=== PATIENT | female | born 1995 | race Caucasian/White ===

== ENCOUNTER 2019-07-09 18:53 | Emergency (ER) | payer OTHER ==
[2019-07-09] MEDS ORDERED: ACETAMINOPHEN 500 MG TABLET (FP) PO ONE (18:56)
[2019-07-09 18:58] VITALS: BP 132/71; PULSE 130; TEMP 100.7; BMI 22.1
--- NOTE | 2019-07-09 18:59 | PDOC ---
Rapid Medical Evaluation Chief Complaint: Cold Symptoms Time Seen by Provider: 07/09/19 18:56 Medical Evaluation: Vital Signs Temp Pulse Resp BP Pulse Ox 100.7 F H 130 H 19 132/71 97 07/09/19 18:56 07/09/19 18:56 07/09/19 18:56 07/09/19 18:56 07/09/19 18:56 07/09/19 18:58 Pt c/o: uri s/s since monday afternoon, took cough medication Pt on brief exam: febrile, tachy pt ordered for: tylenol and flu swab pt to proceed to the ED Discharge Disposition - Diagnosis Fever - Referrals - Patient Instructions - Post Discharge Activity
[2019-07-09] MEDS ORDERED: ACETAMINOPHEN 325 MG TABLET (FP) ONE (19:18)
--- NOTE | 2019-07-09 19:20 | PDOC ---
History of Present Illness - General Chief Complaint: Cold Symptoms Stated Complaint: COLD SYMPTOMS Time Seen by Provider: 07/09/19 18:56 Exam Limitations: No Limitations - History of Present Illness Is this a multiple visit Asthma Patient?: No Past History - Past Medical History Allergies/Adverse Reactions: Allergies Allergy/AdvReac Type Severity Reaction Status Date / Time No Known Allergies Allergy Verified 07/09/19 18:58 Home Medications: Ambulatory Orders Oseltamivir Phosphate [Tamiflu -] 75 mg PO BID #10 capsule 07/09/19 COPD: No - Surgical History Cardiac Surgery: Yes (age of 3 hole repair) - Psycho Social/Smoking Cessation Hx Smoking History: Never smoked Information on smoking cessation initiated: No Hx Alcohol Use: No Drug/Substance Use Hx: No Review of Systems - Review of Systems Able to Perform ROS?: Yes Is the patient limited Greek proficient: Yes Constitutional: Yes: Symptoms Reported, See HPI, Chills, Fever, Loss of Appetite , Malaise HEENTM: Yes: Symptoms Reported, See HPI, Ear Pain, Nose Congestion, Throat Pain , Difficulty Swallowing Respiratory: Yes: Symptoms reported, See HPI, Cough ABD/GI: Yes: See HPI. No: Symptoms Reported Musculoskeletal: Yes: Symptoms Reported, Muscle Pain, Muscle Weakness Integumentary: Yes: See HPI. No: Symptoms Reported Neurological: Yes: Symptoms reported, See HPI, Headache All Other Systems: Reviewed and Negative *Physical Exam - Vital Signs Last Vital Signs Temp Pulse Resp BP Pulse Ox 100.7 F H 130 H 19 132/71 97 07/09/19 18:56 07/09/19 18:56 07/09/19 18:56 07/09/19 18:56 07/09/19 18:56 - Physical Exam General Appearance: Yes: Nourished, Appropriately Dressed, Apparent Distress, Mild Distress HEENT: positive: SHRUTI (Glassy), TMs Normal (Congested but landmarks easily visualized), Pharyngeal Erythema (With white postnasal drainage, swollen uvula) , Nasal Congestion, Rhinorrhea (Clear) Neck: positive: Supple, Lymphadenopathy (R), Lymphadenopathy (L). negative: Tender Respiratory/Chest: positive: Lungs Clear (Coarse but clear), Normal Breath Sounds Gastrointestinal/Abdominal: positive: Normal Bowel Sounds, Soft. 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 Discharge - Discharge Information Problems reviewed: Yes Clinical Impression/Diagnosis: Influenzal acute upper respiratory infection Condition: Stable Disposition: HOME - Admission No - Follow up/Referral Referrals: Paul Quintana MD [Primary Care Provider] - - Patient Discharge Instructions Patient Printed Discharge Instructions: DI for Influenza -- Adult Additional Instructions: Rest, no strenuous activity until symptoms have resolved Lots of fluids: Soups, teas, water Salt water gargles, steamy showers, old-fashioned treatments [id number] medications: NyQuil/DayQuil, Tylenol or Motrin for fever and symptomatic relief Quarantine self as this viral illness is very contagious. Expect symptoms to last between 5 and 10 days Tamiflu 1-75 mg tablet every 12 hours for 5 days - Post Discharge Activity Work/Back to School Note: Back to Work, Back to School
== END 2019-07-09 19:25 | disposition home or self-care (01) ==
LOC: JERFT 18:53
DX: J11.1 Influenza due to unidentified influenza virus with other respiratory manifestations (principal)
CPT/HCPCS: 87804; 99283-25

== ENCOUNTER 2023-04-04 08:20 | Inpatient (IN) | payer OTHER ==
[2023-04-04] MEDS ORDERED: ACETAMINOPHEN 1000 MG/100 ML BAG IVPB ONE (09:09)
[2023-04-04] MEDS ORDERED: ACETAMINOPHEN INJECTION 100 ML IVPB ONE (09:20)
[2023-04-04 10:01] LABS: BASO % 0.1 % (0-2.0); EOS % 0.1 % (0-4.5); HEMATOCRIT 31.6 % (32.4-45.2); HEMOGLOBIN 9.6 GM/dL (10.7-15.3); LYMPH % 8.3 % (8-40); MCH 22.5 pg (25.7-33.7); MCHC 30.5 g/dl (32.0-36.0); MEAN CELL VOLUME 73.9 fl (80-96); MEAN PLT VOLUME 7.8 fl (7.5-11.1); NEUT % 84.5 % (42.8-82.8); PLATELET COUNT 421 10^3/uL (134-434); RBC 4.28 M/mm3 (3.60-5.2); RDW 15.1 % (11.6-15.6); WHITE BLOOD COUNT 10.9 K/mm3 (4.0-10.0)
[2023-04-04 10:08] LABS: INR 1.25 (0.83-1.09); PROTHROMBIN TIME (PATIENT) 14.5 SEC (9.7-13.0)
[2023-04-04 10:11] LABS: ACTIVATED PTT 29.8 SECONDS (25.2-36.5)
[2023-04-04] MEDS ORDERED: ONDANSETRON 4 MG/2 ML VIAL IVPUSH ONE (10:40)
[2023-04-04] MEDS ORDERED: ONDANSETRON 4 MG/2 ML VIAL ONE (10:45)
[2023-04-04 10:46] LABS: POTASSIUM 3.8 mmol/L (3.5-5.1)
[2023-04-04 10:47] LABS: CALCIUM 8.4 mg/dL (8.5-10.1)
[2023-04-04 10:48] LABS: ALBUMIN 3.2 g/dl (3.4-5.0); BLOOD UREA NITROGEN 13.8 mg/dL (7-18)
[2023-04-04 10:52] LABS: BILIRUBIN,TOTAL 0.4 mg/dL (0.2-1); CREATININE 0.7 mg/dL (0.55-1.3); TOT PROT 7.5 g/dl (6.4-8.2)
[2023-04-04 12:33] LABS: PH,URINE 5.5 (5.0-8.0); URINE APPEARANCE CLEAR; URINE BILIRUBIN NEGATIVE (NEGATIVE); URINE COLOR DK YELLOW; URINE GLUCOSE (UA) NEGATIVE (NEGATIVE); URINE KETONE 2+ (NEGATIVE); URINE LEUK ESTERASE NEGATIVE (NEGATIVE); URINE NITRITE NEGATIVE (NEGATIVE); URINE PROTEIN TRACE (NEGATIVE)
[2023-04-04] MEDS ORDERED: PIPERACILLIN/TAZOB 4.5 GM 4.5 GM in DEXTROSE 5%-WATER 100 ML IVPB ONE (14:28)
[2023-04-04] MEDS ORDERED: PIPERACILLIN/TAZOB 4.5 GM 4.5 GM/100 ML BAG IVPB ONE (14:37)
[2023-04-04] MEDS: LACTATED RINGERS SOLUTION 1,000 ML/1,000 ML INFUS.BAG IV SCH (15:00)
[2023-04-04 19:30] VITALS: BMI 23.4
[2023-04-04] MEDS ORDERED: PIPERACILLIN/TAZOB 3.375 GM 3.375 GM in DEXTROSE 5%-WATER - 50 ML IVPB SCH (20:00)
[2023-04-04] MEDS: PIPERACILLIN/TAZOB 3.375 GM 3.375 GM in DEXTROSE 5%-WATER - 50 ML IVPB SCH (21:40)
[2023-04-05] MEDS: LACTATED RINGERS SOLUTION 1,000 ML/1,000 ML INFUS.BAG IV SCH (03:32)
[2023-04-05] MEDS: PIPERACILLIN/TAZOB 3.375 GM 3.375 GM in DEXTROSE 5%-WATER - 50 ML IVPB SCH ×2 (03:32→13:20)
[2023-04-05 10:31] LABS: BASO % 0.1 % (0-2.0); EOS % 0.3 % (0-4.5); HEMATOCRIT 28.6 % (32.4-45.2); HEMOGLOBIN 8.7 GM/dL (10.7-15.3); LYMPH % 13.6 % (8-40); MCH 22.3 pg (25.7-33.7); MCHC 30.3 g/dl (32.0-36.0); MEAN CELL VOLUME 73.8 fl (80-96); MEAN PLT VOLUME 8.1 fl (7.5-11.1); MONO % 8.3 % (3.8-10.2); NEUT % 77.7 % (42.8-82.8); PLATELET COUNT 395 10^3/uL (134-434); RBC 3.88 M/mm3 (3.60-5.2); RDW 15.1 % (11.6-15.6); WHITE BLOOD COUNT 8.9 K/mm3 (4.0-10.0)
[2023-04-05 11:12] LABS: CALCIUM 8.5 mg/dL (8.5-10.1)
[2023-04-05 11:13] LABS: BLOOD UREA NITROGEN 8.7 mg/dL (7-18)
[2023-04-05 11:15] LABS: CREATININE 0.7 mg/dL (0.55-1.3)
[2023-04-05] MEDS: PIPERACILLIN/TAZOB 4.5 GM 4.5 GM in DEXTROSE 5%-WATER 100 ML IVPB SCH ×2 (13:22→18:23)
[2023-04-06] MEDS: PIPERACILLIN/TAZOB 4.5 GM 4.5 GM in DEXTROSE 5%-WATER 100 ML IVPB SCH ×3 (01:15→17:16)
[2023-04-06 09:16] LABS: BASO % 0.2 % (0-2.0); EOS % 0.9 % (0-4.5); HEMATOCRIT 27.8 % (32.4-45.2); HEMOGLOBIN 8.5 GM/dL (10.7-15.3); LYMPH % 14.5 % (8-40); MCH 22.5 pg (25.7-33.7); MCHC 30.5 g/dl (32.0-36.0); MEAN CELL VOLUME 73.6 fl (80-96); MONO % 9.3 % (3.8-10.2); NEUT % 75.1 % (42.8-82.8); PLATELET COUNT 397 10^3/uL (134-434); RBC 3.78 M/mm3 (3.60-5.2); RDW 15.6 % (11.6-15.6); WHITE BLOOD COUNT 6.7 K/mm3 (4.0-10.0)
[2023-04-06 09:40] LABS: POTASSIUM 4.2 mmol/L (3.5-5.1)
[2023-04-06 09:44] LABS: CALCIUM 8.3 mg/dL (8.5-10.1)
[2023-04-06 09:45] LABS: ALBUMIN 2.6 g/dl (3.4-5.0); BLOOD UREA NITROGEN 7.1 mg/dL (7-18); MAGNESIUM 2.2 mg/dL (1.8-2.4)
[2023-04-06 09:47] LABS: BILIRUBIN,TOTAL 0.4 mg/dL (0.2-1); TOT PROT 6.3 g/dl (6.4-8.2)
[2023-04-06 09:48] LABS: CREATININE 0.7 mg/dL (0.55-1.3); PHOSPHOROUS 4.1 mg/dL (2.5-4.9)
[2023-04-06] MEDS: POLYETHYLENE GLYCOL (HEALTHYLAX) 3350 17 GM PACKET PO SCH (09:59)
[2023-04-06] MEDS ORDERED: LACTATED RINGERS SOLUTION 1,000 ML/1,000 ML INFUS.BAG IV SCH (22:00)
[2023-04-07] MEDS: PIPERACILLIN/TAZOB 4.5 GM 4.5 GM in DEXTROSE 5%-WATER 100 ML IVPB SCH ×3 (02:27→17:45)
[2023-04-07 09:07] LABS: BASO % 0.3 % (0-2.0); EOS % 2.5 % (0-4.5); HEMATOCRIT 30.2 % (32.4-45.2); HEMOGLOBIN 9.4 GM/dL (10.7-15.3); LYMPH % 22.7 % (8-40); MCH 22.7 pg (25.7-33.7); MEAN CELL VOLUME 73.2 fl (80-96); MEAN PLT VOLUME 7.7 fl (7.5-11.1); MONO % 11.5 % (3.8-10.2); PLATELET COUNT 462 10^3/uL (134-434); RBC 4.13 M/mm3 (3.60-5.2); RDW 15.4 % (11.6-15.6); WHITE BLOOD COUNT 5.4 K/mm3 (4.0-10.0)
[2023-04-07 09:40] LABS: CALCIUM 9.2 mg/dL (8.5-10.1); POTASSIUM 4.2 mmol/L (3.5-5.1)
[2023-04-07 09:41] LABS: BLOOD UREA NITROGEN 6.1 mg/dL (7-18); MAGNESIUM 2.3 mg/dL (1.8-2.4)
[2023-04-07 09:44] LABS: ALBUMIN 2.9 g/dl (3.4-5.0); CREATININE 0.7 mg/dL (0.55-1.3)
[2023-04-07 09:45] LABS: BILIRUBIN,TOTAL 0.4 mg/dL (0.2-1)
[2023-04-07] MEDS: POLYETHYLENE GLYCOL (HEALTHYLAX) 3350 17 GM PACKET PO SCH (12:31)
[2023-04-07 19:20] LABS: RETICULOCYTES 0.73 % (0.5-1.5)
[2023-04-08] MEDS: PIPERACILLIN/TAZOB 4.5 GM 4.5 GM in DEXTROSE 5%-WATER 100 ML IVPB SCH ×3 (02:03→17:46)
[2023-04-08] MEDS: ACETAMINOPHEN 500 MG TABLET (FP) PO PRN (09:09)
[2023-04-08] MEDS: POLYETHYLENE GLYCOL (HEALTHYLAX) 3350 17 GM PACKET PO SCH (09:10)
[2023-04-08 09:17] LABS: BASO % 0.5 % (0-2.0); EOS % 1.6 % (0-4.5); HEMATOCRIT 30.3 % (32.4-45.2); HEMOGLOBIN 9.2 GM/dL (10.7-15.3); LYMPH % 20.3 % (8-40); MCH 22.3 pg (25.7-33.7); MCHC 30.4 g/dl (32.0-36.0); MEAN CELL VOLUME 73.6 fl (80-96); MEAN PLT VOLUME 7.2 fl (7.5-11.1); MONO % 7.2 % (3.8-10.2); NEUT % 70.4 % (42.8-82.8); PLATELET COUNT 461 10^3/uL (134-434); RBC 4.12 M/mm3 (3.60-5.2); RDW 15.5 % (11.6-15.6); WHITE BLOOD COUNT 4.6 K/mm3 (4.0-10.0)
[2023-04-08 09:41] LABS: POTASSIUM 3.7 mmol/L (3.5-5.1)
[2023-04-08 09:53] LABS: BLOOD UREA NITROGEN 5.2 mg/dL (7-18); CALCIUM 8.7 mg/dL (8.5-10.1)
[2023-04-08 09:54] LABS: ALBUMIN 2.7 g/dl (3.4-5.0)
[2023-04-08 09:56] LABS: CREATININE 0.9 mg/dL (0.55-1.3)
[2023-04-08 09:58] LABS: BILIRUBIN,TOTAL 0.4 mg/dL (0.2-1); TOT PROT 6.7 g/dl (6.4-8.2)
[2023-04-09] MEDS: PIPERACILLIN/TAZOB 4.5 GM 4.5 GM in DEXTROSE 5%-WATER 100 ML IVPB SCH ×3 (01:30→18:22)
[2023-04-09 08:45] LABS: BASO % 0.5 % (0-2.0); EOS % 2.8 % (0-4.5); HEMATOCRIT 28.9 % (32.4-45.2); HEMOGLOBIN 9.2 GM/dL (10.7-15.3); LYMPH % 27.9 % (8-40); MCH 22.8 pg (25.7-33.7); MCHC 31.9 g/dl (32.0-36.0); MEAN CELL VOLUME 71.3 fl (80-96); MEAN PLT VOLUME 7.4 fl (7.5-11.1); MONO % 9.9 % (3.8-10.2); NEUT % 58.9 % (42.8-82.8); PLATELET COUNT 428 10^3/uL (134-434); RBC 4.05 M/mm3 (3.60-5.2); RDW 15.7 % (11.6-15.6); WHITE BLOOD COUNT 4.3 K/mm3 (4.0-10.0)
[2023-04-09] MEDS: POLYETHYLENE GLYCOL (HEALTHYLAX) 3350 17 GM PACKET PO SCH (09:08)
[2023-04-09 09:29] LABS: ALBUMIN 2.7 g/dl (3.4-5.0); BILIRUBIN,TOTAL 0.3 mg/dL (0.2-1); BLOOD UREA NITROGEN 3.2 mg/dL (7-18); CALCIUM 8.4 mg/dL (8.5-10.1); CREATININE 0.7 mg/dL (0.55-1.3); POTASSIUM 4.2 mmol/L (3.5-5.1); TOT PROT 6.5 g/dl (6.4-8.2)
[2023-04-10] MEDS: PIPERACILLIN/TAZOB 4.5 GM 4.5 GM in DEXTROSE 5%-WATER 100 ML IVPB SCH ×3 (01:29→17:35)
[2023-04-10] MEDS: POLYETHYLENE GLYCOL (HEALTHYLAX) 3350 17 GM PACKET PO SCH (09:26)
[2023-04-10 09:34] LABS: BASO % 0.7 % (0-2.0); EOS % 2.4 % (0-4.5); HEMOGLOBIN 9.1 GM/dL (10.7-15.3); LYMPH % 22.6 % (8-40); MCH 22.1 pg (25.7-33.7); MCHC 30.3 g/dl (32.0-36.0); MEAN CELL VOLUME 72.7 fl (80-96); MEAN PLT VOLUME 7.5 fl (7.5-11.1); MONO % 6.4 % (3.8-10.2); NEUT % 67.9 % (42.8-82.8); PLATELET COUNT 483 10^3/uL (134-434); RBC 4.13 M/mm3 (3.60-5.2); RDW 15.5 % (11.6-15.6); WHITE BLOOD COUNT 4.4 K/mm3 (4.0-10.0)
[2023-04-10 09:57] LABS: POTASSIUM 3.9 mmol/L (3.5-5.1)
[2023-04-10 10:07] LABS: CREATININE 0.7 mg/dL (0.55-1.3)
[2023-04-10 10:08] LABS: ALBUMIN 2.8 g/dl (3.4-5.0); BLOOD UREA NITROGEN 3.9 mg/dL (7-18)
[2023-04-10 10:09] LABS: BILIRUBIN,TOTAL 0.2 mg/dL (0.2-1); TOT PROT 6.7 g/dl (6.4-8.2)
[2023-04-10 10:12] LABS: CALCIUM 8.9 mg/dL (8.5-10.1)
[2023-04-10 16:13] VITALS: RESP 18
[2023-04-11] MEDS: PIPERACILLIN/TAZOB 4.5 GM 4.5 GM in DEXTROSE 5%-WATER 100 ML IVPB SCH ×2 (01:28→09:42)
[2023-04-11 06:21] VITALS: BP 94/48; PULSE 65; TEMP 97.9
[2023-04-11 09:04] LABS: BASO % 0.4 % (0-2.0); HEMATOCRIT 30.3 % (32.4-45.2); HEMOGLOBIN 9.6 GM/dL (10.7-15.3); MCH 22.7 pg (25.7-33.7); MCHC 31.7 g/dl (32.0-36.0); MEAN CELL VOLUME 71.6 fl (80-96); MEAN PLT VOLUME 7.2 fl (7.5-11.1); MONO % 5.9 % (3.8-10.2); NEUT % 67.7 % (42.8-82.8); PLATELET COUNT 513 10^3/uL (134-434); RBC 4.23 M/mm3 (3.60-5.2); RDW 15.7 % (11.6-15.6); WHITE BLOOD COUNT 4.3 K/mm3 (4.0-10.0)
[2023-04-11 09:26] LABS: ALBUMIN 2.8 g/dl (3.4-5.0); BLOOD UREA NITROGEN 3.9 mg/dL (7-18)
[2023-04-11 09:29] LABS: CREATININE 0.8 mg/dL (0.55-1.3)
[2023-04-11 09:31] LABS: BILIRUBIN,TOTAL 0.5 mg/dL (0.2-1); TOT PROT 6.7 g/dl (6.4-8.2)
[2023-04-11] MEDS: ACETAMINOPHEN 500 MG TABLET (FP) PO PRN (09:42)
[2023-04-11] MEDS: POLYETHYLENE GLYCOL (HEALTHYLAX) 3350 17 GM PACKET PO SCH (09:42)
== END 2023-04-11 16:54 | disposition home health service (06) | DRG 244 ==
LOC: JER 08:20 → JERBED 14:44 → J5S 17:53
PROVIDERS: ADMIT Internal Medicine; ATTEND Internal Medicine
PROC: 0W9J30Z Drainage of Pelvic Cavity with Drainage Device, Percutaneous Approach (ICD-10-PCS; principal; 2023-04-07)
DX: K57.20 Diverticulitis of large intestine with perforation and abscess without bleeding (principal); K65.1 Peritoneal abscess; R18.8 Other ascites; K59.00 Constipation, unspecified
CPT/HCPCS: 36415; 49407; 74177-TC; 76830-TC; 77012-TC; 80048; 80053; 81003; 82272; 82728; 83540; 83550; 83690; 83735; 84100; 84466; 84703; 85025; 85045; 85610; 85730; 86850; 86900; 86901; 87086; 94010; 99285-25; C1729; C1769; Q9967

== ENCOUNTER 2023-04-17 20:20 | Inpatient (IN) | payer OTHER ==
[2023-04-17] MEDS ORDERED: LACTATED RINGERS SOLUTION 1000 ML INFUS.BAG IV STA (21:15)
[2023-04-17] MEDS ORDERED: MAG HYDROX/AL HYDROX/SIMETH -MYLANTA- ORAL SUSPENSION PO ONE (21:39)
[2023-04-17] MEDS ORDERED: FAMOTIDINE 20 MG/50 ML IVPB 20 MG/50 ML MG IVPB ONE ×2 (21:39→21:51)
[2023-04-17] MEDS ORDERED: MAG HYDROX/AL HYDROX/SIMETH 30 ML UNIT-DOSE CUP ONE (21:50)
[2023-04-17 21:53] LABS: BASO % 0.3 % (0-2.0); EOS % 0.7 % (0-4.5); HEMATOCRIT 30.3 % (32.4-45.2); HEMOGLOBIN 9.8 GM/dL (10.7-15.3); MCHC 32.3 g/dl (32.0-36.0); MEAN CELL VOLUME 71.1 fl (80-96); MEAN PLT VOLUME 7.2 fl (7.5-11.1); MONO % 7.2 % (3.8-10.2); NEUT % 76.8 % (42.8-82.8); PLATELET COUNT 521 10^3/uL (134-434); RBC 4.26 M/mm3 (3.60-5.2); RDW 17.2 % (11.6-15.6)
[2023-04-17] MEDS ORDERED: ACETAMINOPHEN 1000 MG/100 ML BAG IVPB ONE (22:49)
[2023-04-17] MEDS ORDERED: ACETAMINOPHEN INJECTION 100 ML IVPB ONE (22:57)
[2023-04-17 23:26] LABS: POTASSIUM 3.6 mmol/L (3.5-5.1)
[2023-04-17 23:28] LABS: CALCIUM 8.1 mg/dL (8.5-10.1)
[2023-04-17 23:29] LABS: ALBUMIN 2.9 g/dl (3.4-5.0); BLOOD UREA NITROGEN 9.4 mg/dL (7-18)
[2023-04-17 23:32] LABS: CREATININE 0.7 mg/dL (0.55-1.3)
[2023-04-17 23:33] LABS: BILIRUBIN,TOTAL 0.3 mg/dL (0.2-1)
[2023-04-17 23:34] LABS: TOT PROT 6.2 g/dl (6.4-8.2)
[2023-04-18 01:14] LABS: URINE APPEARANCE CLEAR; URINE BILIRUBIN NEGATIVE (NEGATIVE); URINE COLOR YELLOW; URINE GLUCOSE (UA) NEGATIVE (NEGATIVE); URINE KETONE 4+ (NEGATIVE); URINE LEUK ESTERASE NEGATIVE (NEGATIVE); URINE NITRITE NEGATIVE (NEGATIVE); URINE PROTEIN NEGATIVE (NEGATIVE); URINE UROBILINOGEN 0.2 mg/dL (0.2-1.0)
[2023-04-18] MEDS ORDERED: KETOROLAC TROMETHAMINE 30 MG/1 ML VIAL IVPUSH ONE (01:58)
[2023-04-18] MEDS ORDERED: KETOROLAC TROMETHAMINE 30 MG/1 ML VIAL ONE (02:04)
[2023-04-18] MEDS ORDERED: PIPERACILLIN/TAZOB 3.375 GM 3.375 GM/50 ML BAG IVPB ONE (09:52)
[2023-04-18] MEDS: SODIUM CHLORIDE 1,000 ML IV SCH ×2 (09:56→22:47)
[2023-04-18] MEDS: PIPERACILLIN/TAZOB 3.375 GM 3.375 GM in DEXTROSE 5%-WATER - 50 ML IVPB SCH ×4 (09:57→18:53)
[2023-04-18] MEDS ORDERED: SUCRALFATE 1 GM TABLET (FP) PO SCH (10:00)
[2023-04-18 11:15] LABS: HEMATOCRIT 28.9 % (32.4-45.2); HEMOGLOBIN 9.1 GM/dL (10.7-15.3); MCH 22.4 pg (25.7-33.7); MCHC 31.4 g/dl (32.0-36.0); MEAN CELL VOLUME 71.2 fl (80-96); PLATELET COUNT 436 10^3/uL (134-434); RBC 4.06 M/mm3 (3.60-5.2); RDW 15.8 % (11.6-15.6); WHITE BLOOD COUNT 6.6 K/mm3 (4.0-10.0)
[2023-04-18 11:40] LABS: POTASSIUM 4.2 mmol/L (3.5-5.1)
[2023-04-18 11:48] LABS: CALCIUM 8.7 mg/dL (8.5-10.1)
[2023-04-18 11:49] LABS: ALBUMIN 2.8 g/dl (3.4-5.0); BLOOD UREA NITROGEN 6.9 mg/dL (7-18); MAGNESIUM 2.1 mg/dL (1.8-2.4)
[2023-04-18 11:51] LABS: PHOSPHOROUS 2.9 mg/dL (2.5-4.9)
[2023-04-18 11:52] LABS: CREATININE 0.7 mg/dL (0.55-1.3)
[2023-04-18 11:53] LABS: BILIRUBIN,TOTAL 0.7 mg/dL (0.2-1); TOT PROT 6.2 g/dl (6.4-8.2)
[2023-04-18] MEDS ORDERED: ACETAMINOPHEN 325 MG TABLET (FP) PO PRN (18:06)
[2023-04-18] MEDS ORDERED: ACETAMINOPHEN 1000 MG/100 ML BAG IVPB ONE (20:12)
[2023-04-18] MEDS ORDERED: ACETAMINOPHEN 1000 MG/100 ML BAG IVPB PRN (22:40)
[2023-04-19] MEDS: PIPERACILLIN/TAZOB 3.375 GM 3.375 GM in DEXTROSE 5%-WATER - 50 ML IVPB SCH ×3 (01:56→17:00)
[2023-04-19] MEDS ORDERED: PIPERACILLIN/TAZOB 3.375 GM 3.375 GM in DEXTROSE 5%-WATER - 50 ML IVPB SCH (02:00)
[2023-04-19] MEDS: SODIUM CHLORIDE 1,000 ML IV SCH (07:10)
[2023-04-19 09:04] LABS: BASO % 0.3 % (0-2.0); EOS % 0.8 % (0-4.5); HEMATOCRIT 27.7 % (32.4-45.2); HEMOGLOBIN 8.5 GM/dL (10.7-15.3); LYMPH % 10.7 % (8-40); MCH 22.3 pg (25.7-33.7); MCHC 30.8 g/dl (32.0-36.0); MEAN CELL VOLUME 72.3 fl (80-96); MEAN PLT VOLUME 7.4 fl (7.5-11.1); MONO % 5.6 % (3.8-10.2); NEUT % 82.6 % (42.8-82.8); PLATELET COUNT 387 10^3/uL (134-434); RBC 3.83 M/mm3 (3.60-5.2); RDW 15.8 % (11.6-15.6); WHITE BLOOD COUNT 6.6 K/mm3 (4.0-10.0)
[2023-04-19 09:21] LABS: POTASSIUM 3.9 mmol/L (3.5-5.1)
[2023-04-19 09:28] LABS: CALCIUM 7.8 mg/dL (8.5-10.1)
[2023-04-19 09:29] LABS: ALBUMIN 2.6 g/dl (3.4-5.0); BLOOD UREA NITROGEN 7.5 mg/dL (7-18)
[2023-04-19 09:32] LABS: CREATININE 0.6 mg/dL (0.55-1.3)
[2023-04-19 09:34] LABS: BILIRUBIN,TOTAL 0.8 mg/dL (0.2-1); TOT PROT 5.6 g/dl (6.4-8.2)
[2023-04-19] MEDS: ONDANSETRON 4 MG/2 ML VIAL IVPUSH PRN (10:45)
[2023-04-19] MEDS ORDERED: IRON SUCROSE INJECTION 200 MG in SODIUM CHLORIDE 90 ML IVPB ONE (15:00)
[2023-04-19] MEDS: DEXTROSE 5%-NORMAL SALINE 1,000 ML IV SCH (15:43)
[2023-04-20] MEDS ORDERED: ACETAMINOPHEN 1000 MG/100 ML BAG IVPB ONE (02:39)
[2023-04-20] MEDS: PIPERACILLIN/TAZOB 3.375 GM 3.375 GM in DEXTROSE 5%-WATER - 50 ML IVPB SCH ×3 (02:43→17:13)
[2023-04-20] MEDS: ONDANSETRON 4 MG/2 ML VIAL IVPUSH PRN ×2 (03:37→09:52)
[2023-04-20 07:59] LABS: BASO % 0.4 % (0-2.0); EOS % 0.6 % (0-4.5); HEMATOCRIT 26.6 % (32.4-45.2); HEMOGLOBIN 8.2 GM/dL (10.7-15.3); LYMPH % 13.4 % (8-40); MCH 22.3 pg (25.7-33.7); MCHC 30.8 g/dl (32.0-36.0); MEAN CELL VOLUME 72.5 fl (80-96); MEAN PLT VOLUME 7.5 fl (7.5-11.1); MONO % 6.9 % (3.8-10.2); NEUT % 78.7 % (42.8-82.8); PLATELET COUNT 376 10^3/uL (134-434); RBC 3.66 M/mm3 (3.60-5.2); RDW 15.9 % (11.6-15.6); WHITE BLOOD COUNT 7.6 K/mm3 (4.0-10.0)
[2023-04-20 08:20] LABS: POTASSIUM 3.9 mmol/L (3.5-5.1)
[2023-04-20 08:24] LABS: ALBUMIN 2.4 g/dl (3.4-5.0); BLOOD UREA NITROGEN 4.7 mg/dL (7-18); CALCIUM 8.2 mg/dL (8.5-10.1)
[2023-04-20 08:27] LABS: CREATININE 0.6 mg/dL (0.55-1.3); PHOSPHOROUS 3.1 mg/dL (2.5-4.9)
[2023-04-20 08:29] LABS: BILIRUBIN,TOTAL 0.4 mg/dL (0.2-1); TOT PROT 5.3 g/dl (6.4-8.2)
[2023-04-20] MEDS: DEXTROSE 5%-NORMAL SALINE 1,000 ML IV SCH ×2 (09:00→16:06)
[2023-04-20] MEDS ORDERED: ACETAMINOPHEN 1000 MG/100 ML BAG IVPB PRN (11:24)
[2023-04-21] MEDS: PIPERACILLIN/TAZOB 3.375 GM 3.375 GM in DEXTROSE 5%-WATER - 50 ML IVPB SCH ×3 (02:39→17:37)
[2023-04-21] MEDS: PANTOPRAZOLE SODIUM 40 MG VIAL IVPUSH SCH (10:23)
[2023-04-21] MEDS ORDERED: AMINO ACIDS 4.25%/D5W 1,000 ML IV SCH (12:15)
[2023-04-21] MEDS: DEXTROSE 5%-NORMAL SALINE 1,000 ML IV SCH (17:35)
[2023-04-22] MEDS: PIPERACILLIN/TAZOB 3.375 GM 3.375 GM in DEXTROSE 5%-WATER - 50 ML IVPB SCH ×3 (02:06→17:09)
[2023-04-22 08:20] LABS: BASO % 0.7 % (0-2.0); HEMATOCRIT 27.9 % (32.4-45.2); HEMOGLOBIN 8.6 GM/dL (10.7-15.3); LYMPH % 27.8 % (8-40); MCH 22.2 pg (25.7-33.7); MCHC 30.9 g/dl (32.0-36.0); MEAN PLT VOLUME 7.6 fl (7.5-11.1); MONO % 7.6 % (3.8-10.2); NEUT % 61.9 % (42.8-82.8); PLATELET COUNT 379 10^3/uL (134-434); RBC 3.88 M/mm3 (3.60-5.2); RDW 16.3 % (11.6-15.6); WHITE BLOOD COUNT 4.9 K/mm3 (4.0-10.0)
[2023-04-22 08:47] LABS: CHLORIDE 104 mmol/L (98-107); POTASSIUM 3.2 mmol/L (3.5-5.1); SODIUM 138 mmol/L (136-145)
[2023-04-22 08:52] LABS: ALBUMIN 2.6 g/dl (3.4-5.0); ANION GAP 5 mmol/L (4-13); CALCIUM 7.9 mg/dL (8.5-10.1); CO2 29 mmol/L (21-32); GLUCOSE,RANDOM 84 mg/dL (74-106); MAGNESIUM 1.7 mg/dL (1.8-2.4)
[2023-04-22 08:54] LABS: CREATININE 0.6 mg/dL (0.55-1.3); PHOSPHOROUS 3.4 mg/dL (2.5-4.9); SGOT/AST 24 U/L (15-37); SGPT/ALT 15 U/L (13-61)
[2023-04-22 08:56] LABS: BILIRUBIN,TOTAL 0.3 mg/dL (0.2-1); TOT PROT 5.9 g/dl (6.4-8.2)
[2023-04-22 08:57] LABS: ALK PHOS 46 U/L (45-117)
[2023-04-22] MEDS: POTASSIUM CHLORIDE TABS 20 MEQ TABLET.ER (FP) PO SCH (10:26)
[2023-04-22] MEDS: PANTOPRAZOLE SODIUM 40 MG VIAL IVPUSH SCH (10:26)
[2023-04-22] MEDS: DEXTROSE 5%-NORMAL SALINE 1,000 ML IV SCH ×2 (16:56→22:57)
[2023-04-22 20:24] VITALS: BMI 22.0
[2023-04-23] MEDS: PIPERACILLIN/TAZOB 3.375 GM 3.375 GM in DEXTROSE 5%-WATER - 50 ML IVPB SCH ×3 (01:04→17:49)
[2023-04-23 08:13] LABS: BASO % 0.7 % (0-2.0); EOS % 2.9 % (0-4.5); HEMATOCRIT 27.5 % (32.4-45.2); HEMOGLOBIN 8.3 GM/dL (10.7-15.3); LYMPH % 31.1 % (8-40); MCH 21.7 pg (25.7-33.7); MCHC 30.2 g/dl (32.0-36.0); MONO % 8.4 % (3.8-10.2); NEUT % 56.9 % (42.8-82.8); PLATELET COUNT 344 10^3/uL (134-434); RBC 3.82 M/mm3 (3.60-5.2); RDW 16.3 % (11.6-15.6); WHITE BLOOD COUNT 3.9 K/mm3 (4.0-10.0)
[2023-04-23 08:25] LABS: CHLORIDE 106 mmol/L (98-107); POTASSIUM 3.7 mmol/L (3.5-5.1); SODIUM 140 mmol/L (136-145)
[2023-04-23 08:48] LABS: ANION GAP 4 mmol/L (4-13); CALCIUM 8.3 mg/dL (8.5-10.1); CO2 29 mmol/L (21-32); GLUCOSE,RANDOM 88 mg/dL (74-106)
[2023-04-23 08:52] LABS: CREATININE 0.6 mg/dL (0.55-1.3)
[2023-04-23 08:53] LABS: BLOOD UREA NITROGEN 2.3 mg/dL (7-18)
[2023-04-23 08:59] LABS: ANISOCYTOSIS 3+; MACROCYTOSIS 0
[2023-04-23 09:49] VITALS: RESP 18
[2023-04-23] MEDS: POTASSIUM CHLORIDE TABS 20 MEQ TABLET.ER (FP) PO SCH (09:50)
[2023-04-23] MEDS: PANTOPRAZOLE SODIUM 40 MG VIAL IVPUSH SCH (09:50)
[2023-04-23] MEDS: DEXTROSE 5%-NORMAL SALINE 1,000 ML IV SCH (15:30)
[2023-04-24] MEDS: PIPERACILLIN/TAZOB 3.375 GM 3.375 GM in DEXTROSE 5%-WATER - 50 ML IVPB SCH ×2 (02:19→10:28)
[2023-04-24] MEDS: DEXTROSE 5%-NORMAL SALINE 1,000 ML IV SCH (05:56)
[2023-04-24 08:16] LABS: HEMATOCRIT 30.5 % (32.4-45.2); HEMOGLOBIN 9.4 GM/dL (10.7-15.3); MCH 21.9 pg (25.7-33.7); MCHC 30.9 g/dl (32.0-36.0); MEAN PLT VOLUME 7.8 fl (7.5-11.1); PLATELET COUNT 392 10^3/uL (134-434); RDW 16.3 % (11.6-15.6); WHITE BLOOD COUNT 5.1 K/mm3 (4.0-10.0)
[2023-04-24 08:39] LABS: CHLORIDE 106 mmol/L (98-107); POTASSIUM 4.1 mmol/L (3.5-5.1); SODIUM 139 mmol/L (136-145)
[2023-04-24 08:49] LABS: ANION GAP 8 mmol/L (4-13); CALCIUM 8.6 mg/dL (8.5-10.1); CO2 26 mmol/L (21-32); GLUCOSE,RANDOM 86 mg/dL (74-106); MAGNESIUM 1.9 mg/dL (1.8-2.4)
[2023-04-24 08:52] LABS: CREATININE 0.6 mg/dL (0.55-1.3); PHOSPHOROUS 3.8 mg/dL (2.5-4.9); SGOT/AST 44 U/L (15-37); SGPT/ALT 34 U/L (13-61)
[2023-04-24 08:53] LABS: TOT PROT 6.6 g/dl (6.4-8.2)
[2023-04-24 08:54] LABS: BILIRUBIN,TOTAL 0.5 mg/dL (0.2-1)
[2023-04-24 08:55] LABS: ALK PHOS 59 U/L (45-117)
[2023-04-24] MEDS: POTASSIUM CHLORIDE TABS 20 MEQ TABLET.ER (FP) PO SCH (10:28)
[2023-04-24] MEDS: PANTOPRAZOLE SODIUM 40 MG VIAL IVPUSH SCH (10:28)
[2023-04-24 16:01] VITALS: BP 109/45; PULSE 78; TEMP 98.2
== END 2023-04-24 18:05 | disposition home or self-care (01) | DRG 249 ==
LOC: JER 20:20 → OBSVTOIN 04-18 03:40 → JERBED 04-18 03:40 → J7W 04-18 17:01
PROVIDERS: ADMIT Internal Medicine; ATTEND Internal Medicine
DX: K52.9 Noninfective gastroenteritis and colitis, unspecified (principal); R18.8 Other ascites; D50.9 Iron deficiency anemia, unspecified; K29.70 Gastritis, unspecified, without bleeding; K38.9 Disease of appendix, unspecified; K56.7 Ileus, unspecified; K57.20 Diverticulitis of large intestine with perforation and abscess without bleeding
CPT/HCPCS: 0241U-QW; 36415; 74018-TC-FY; 74177-TC; 76705-TC; 80048; 80053; 81003; 82728; 83540; 83550; 83735; 84100; 84703; 85025; 85027; 85730; 86140; 86850; 86900; 86901; 87040; 87086; 93005; 93010; 93306-TC; 97116-GP; 97161-GP; 99285-25; Q9967

== ENCOUNTER 2023-06-28 08:07 | Inpatient (IN) | payer OTHER ==
[2023-06-28] MEDS ORDERED: ACETAMINOPHEN INJECTION 100 ML IVPB ONE (09:23)
[2023-06-28] MEDS: SODIUM CHLORIDE 0.9% 500 ML INFUS.BAG IV ONE (09:38)
[2023-06-28] MEDS: ACETAMINOPHEN 1000 MG/100 ML BAG IVPB ONE (09:38)
[2023-06-28 10:29] LABS: BASO % 0.3 % (0-2.0); EOS % 0.2 % (0-4.5); HEMATOCRIT 18.7 % (32.4-45.2); LYMPH % 6.3 % (8-40); MCH 20.9 pg (25.7-33.7); MCHC 30.3 g/dl (32.0-36.0); MEAN PLT VOLUME 7.5 fl (7.5-11.1); MONO % 4.8 % (3.8-10.2); NEUT % 88.4 % (42.8-82.8); PLATELET COUNT 558 10^3/uL (134-434); RBC 2.71 M/mm3 (3.60-5.2); RDW 19.4 % (11.6-15.6); WHITE BLOOD COUNT 8.7 K/mm3 (4.0-10.0)
[2023-06-28 10:33] LABS: HEMOGLOBIN 5.7 GM/dL (10.7-15.3)
[2023-06-28 11:01] LABS: ANISOCYTOSIS 1+; MACROCYTOSIS 0
[2023-06-28 11:23] LABS: POTASSIUM 4.2 mmol/L (3.5-5.1)
[2023-06-28 11:25] LABS: BLOOD UREA NITROGEN 14.5 mg/dL (7-18); CALCIUM 8.6 mg/dL (8.5-10.1)
[2023-06-28 11:26] LABS: ALBUMIN 2.6 g/dl (3.4-5.0)
[2023-06-28 11:29] LABS: CREATININE 0.6 mg/dL (0.55-1.3)
[2023-06-28 11:30] LABS: BILIRUBIN,TOTAL 0.3 mg/dL (0.2-1); TOT PROT 6.6 g/dl (6.4-8.2)
[2023-06-28 11:33] LABS: N-TERMINAL BNP 222.1 pg/ml (5-125)
[2023-06-28 11:50] LABS: URINE APPEARANCE CLEAR; URINE BILIRUBIN NEGATIVE (NEGATIVE); URINE COLOR DK YELLOW; URINE GLUCOSE (UA) NEGATIVE (NEGATIVE); URINE KETONE 1+ (NEGATIVE); URINE LEUK ESTERASE NEGATIVE (NEGATIVE); URINE NITRITE NEGATIVE (NEGATIVE); URINE PROTEIN TRACE (NEGATIVE)
[2023-06-28] MEDS: SODIUM CHLORIDE 1,000 ML IV SCH (11:58)
[2023-06-28 12:01] LABS: HCG,QUALITATIVE URINE Negative
[2023-06-28] MEDS ORDERED: ACETAMINOPHEN 325 MG TABLET (FP) ONE (14:10)
[2023-06-28] MEDS: ACETAMINOPHEN 325 MG TABLET (FP) PO PRN (14:17)
[2023-06-28 23:13] LABS: BASO % 0.4 % (0-2.0); EOS % 0.5 % (0-4.5); HEMATOCRIT 23.2 % (32.4-45.2); HEMOGLOBIN 7.5 GM/dL (10.7-15.3); MCH 24.1 pg (25.7-33.7); MCHC 32.1 g/dl (32.0-36.0); MEAN CELL VOLUME 75.1 fl (80-96); MEAN PLT VOLUME 7.3 fl (7.5-11.1); MONO % 7.9 % (3.8-10.2); NEUT % 76.2 % (42.8-82.8); PLATELET COUNT 416 10^3/uL (134-434); RBC 3.09 M/mm3 (3.60-5.2); RDW 22.4 % (11.6-15.6)
[2023-06-29 10:11] LABS: HEMATOCRIT 23.5 % (32.4-45.2); HEMOGLOBIN 7.4 GM/dL (10.7-15.3); MCH 23.7 pg (25.7-33.7); MCHC 31.3 g/dl (32.0-36.0); MEAN CELL VOLUME 75.7 fl (80-96); MEAN PLT VOLUME 7.6 fl (7.5-11.1); PLATELET COUNT 416 10^3/uL (134-434); RBC 3.11 M/mm3 (3.60-5.2); RDW 21.7 % (11.6-15.6); WHITE BLOOD COUNT 7.4 K/mm3 (4.0-10.0)
[2023-06-29 10:14] LABS: INR 1.17 (0.83-1.09); PROTHROMBIN TIME (PATIENT) 13.6 SEC (9.7-13.0)
[2023-06-29 10:27] LABS: POTASSIUM 3.7 mmol/L (3.5-5.1)
[2023-06-29 10:32] LABS: CALCIUM 8.3 mg/dL (8.5-10.1)
[2023-06-29 10:33] LABS: ALBUMIN 2.2 g/dl (3.4-5.0); BLOOD UREA NITROGEN 8.3 mg/dL (7-18)
[2023-06-29 10:35] LABS: PHOSPHOROUS 3.1 mg/dL (2.5-4.9)
[2023-06-29 10:36] LABS: CREATININE 0.5 mg/dL (0.55-1.3); TOT PROT 5.6 g/dl (6.4-8.2)
[2023-06-29 10:37] LABS: BILIRUBIN,TOTAL 0.6 mg/dL (0.2-1)
[2023-06-29] MEDS: BISACODYL 5 MG TABLET.DR (FP) PO ONE (15:54)
[2023-06-29] MEDS: PEG 3350/NA SULF BICARB CL/KCL 4000 ML SOLN.RECON PO ONE (16:00)
[2023-06-30 10:08] LABS: BASO % 0.4 % (0-2.0); EOS % 0.4 % (0-4.5); HEMATOCRIT 26.9 % (32.4-45.2); HEMOGLOBIN 8.5 GM/dL (10.7-15.3); LYMPH % 7.6 % (8-40); MCHC 31.7 g/dl (32.0-36.0); MEAN CELL VOLUME 75.5 fl (80-96); MEAN PLT VOLUME 7.9 fl (7.5-11.1); MONO % 5.5 % (3.8-10.2); NEUT % 86.1 % (42.8-82.8); PLATELET COUNT 414 10^3/uL (134-434); RBC 3.56 M/mm3 (3.60-5.2); RDW 21.6 % (11.6-15.6); WHITE BLOOD COUNT 8.8 K/mm3 (4.0-10.0)
[2023-06-30 10:12] LABS: INR 1.08 (0.83-1.09); PROTHROMBIN TIME (PATIENT) 12.5 SEC (9.7-13.0)
[2023-06-30 10:27] LABS: POTASSIUM 3.9 mmol/L (3.5-5.1)
[2023-06-30 10:28] LABS: CALCIUM 7.9 mg/dL (8.5-10.1)
[2023-06-30 10:29] LABS: BLOOD UREA NITROGEN 8.4 mg/dL (7-18)
[2023-06-30 10:32] LABS: CREATININE 0.5 mg/dL (0.55-1.3)
[2023-06-30] MEDS: IRON SUCROSE INJECTION 200 MG in SODIUM CHLORIDE 90 ML IVPB ONE (14:43)
[2023-06-30] MEDS: CEFTRIAXONE 1 GM in DEXTROSE 5%-WATER - 50 ML IVPB SCH (14:44)
[2023-06-30] MEDS ORDERED: IOHEXOL (OMNIPAQUE PO) 12 MG/ML - 500 ML BOTTLE PO ONE (18:18)
[2023-07-01 09:25] LABS: BASO % 0.4 % (0-2.0); EOS % 0.9 % (0-4.5); HEMATOCRIT 27.8 % (32.4-45.2); HEMOGLOBIN 9.1 GM/dL (10.7-15.3); LYMPH % 10.4 % (8-40); MCH 24.5 pg (25.7-33.7); MCHC 32.7 g/dl (32.0-36.0); MEAN PLT VOLUME 7.3 fl (7.5-11.1); MONO % 7.1 % (3.8-10.2); NEUT % 81.2 % (42.8-82.8); PLATELET COUNT 437 10^3/uL (134-434); RBC 3.71 M/mm3 (3.60-5.2); RDW 22.1 % (11.6-15.6); WHITE BLOOD COUNT 7.7 K/mm3 (4.0-10.0)
[2023-07-01 09:39] LABS: CHLORIDE 108 mmol/L (98-107); POTASSIUM 3.8 mmol/L (3.5-5.1); SODIUM 139 mmol/L (136-145)
[2023-07-01 09:52] LABS: ALBUMIN 2.4 g/dl (3.4-5.0); ANION GAP 10 mmol/L (4-13); CALCIUM 8.2 mg/dL (8.5-10.1); CO2 20 mmol/L (21-32); GLUCOSE,RANDOM 97 mg/dL (74-106)
[2023-07-01 09:55] LABS: CREATININE 0.5 mg/dL (0.55-1.3); SGOT/AST 18 U/L (15-37); SGPT/ALT 10 U/L (13-61)
[2023-07-01 09:57] LABS: ALK PHOS 61 U/L (45-117); BILIRUBIN,TOTAL 0.6 mg/dL (0.2-1); TOT PROT 5.9 g/dl (6.4-8.2)
[2023-07-01 09:58] LABS: BLOOD UREA NITROGEN 2.6 mg/dL (7-18)
[2023-07-01] MEDS: VITAMIN B COMP W-C 1 EA TABLET (NEPHRO-VITE) PO SCH (11:36)
[2023-07-01] MEDS: IRON SUCROSE INJECTION 200 MG in SODIUM CHLORIDE 90 ML IVPB ONE (11:36)
[2023-07-02 07:07] VITALS: RESP 18
[2023-07-02 07:51] LABS: BASO % 0.3 % (0-2.0); EOS % 2.5 % (0-4.5); HEMATOCRIT 25.4 % (32.4-45.2); LYMPH % 12.4 % (8-40); MCH 24.1 pg (25.7-33.7); MCHC 31.6 g/dl (32.0-36.0); MEAN CELL VOLUME 76.5 fl (80-96); MEAN PLT VOLUME 7.4 fl (7.5-11.1); MONO % 8.3 % (3.8-10.2); NEUT % 76.5 % (42.8-82.8); PLATELET COUNT 390 10^3/uL (134-434); RBC 3.32 M/mm3 (3.60-5.2); RDW 22.7 % (11.6-15.6); WHITE BLOOD COUNT 6.8 K/mm3 (4.0-10.0)
[2023-07-02 08:07] LABS: CHLORIDE 111 mmol/L (98-107); POTASSIUM 3.6 mmol/L (3.5-5.1); SODIUM 143 mmol/L (136-145)
[2023-07-02 08:12] LABS: ANION GAP 7 mmol/L (4-13); CALCIUM 8.1 mg/dL (8.5-10.1); CO2 25 mmol/L (21-32); GLUCOSE,RANDOM 76 mg/dL (74-106)
[2023-07-02 08:15] LABS: CREATININE 0.4 mg/dL (0.55-1.3); SGOT/AST 15 U/L (15-37); SGPT/ALT 9 U/L (13-61)
[2023-07-02 08:16] LABS: BILIRUBIN,TOTAL 0.3 mg/dL (0.2-1)
[2023-07-02 08:17] LABS: TOT PROT 4.9 g/dl (6.4-8.2)
[2023-07-02 08:18] LABS: ALK PHOS 51 U/L (45-117); BLOOD UREA NITROGEN 1.4 mg/dL (7-18)
[2023-07-02 10:25] LABS: ANISOCYTOSIS 3+; MACROCYTOSIS 0
[2023-07-02] MEDS: IRON SUCROSE INJECTION 200 MG in SODIUM CHLORIDE 90 ML IVPB ONE (11:56)
[2023-07-03 08:46] LABS: BASO % 0.3 % (0-2.0); EOS % 3.2 % (0-4.5); HEMATOCRIT 26.1 % (32.4-45.2); HEMOGLOBIN 8.4 GM/dL (10.7-15.3); LYMPH % 13.5 % (8-40); MCH 24.4 pg (25.7-33.7); MCHC 32.2 g/dl (32.0-36.0); MEAN CELL VOLUME 75.7 fl (80-96); MEAN PLT VOLUME 7.4 fl (7.5-11.1); PLATELET COUNT 403 10^3/uL (134-434); RBC 3.45 M/mm3 (3.60-5.2); RDW 22.9 % (11.6-15.6); WHITE BLOOD COUNT 6.3 K/mm3 (4.0-10.0)
[2023-07-03 09:10] LABS: CHLORIDE 109 mmol/L (98-107); POTASSIUM 3.5 mmol/L (3.5-5.1); SODIUM 142 mmol/L (136-145)
[2023-07-03 09:11] LABS: CALCIUM 8.2 mg/dL (8.5-10.1)
[2023-07-03 09:12] LABS: ANION GAP 6 mmol/L (4-13); CO2 27 mmol/L (21-32); GLUCOSE,RANDOM 76 mg/dL (74-106); MAGNESIUM 1.8 mg/dL (1.8-2.4)
[2023-07-03 09:15] LABS: CREATININE 0.4 mg/dL (0.55-1.3)
[2023-07-03 09:16] LABS: BLOOD UREA NITROGEN 1.2 mg/dL (7-18)
[2023-07-04 09:25] LABS: BASO % 0.4 % (0-2.0); EOS % 4.1 % (0-4.5); HEMATOCRIT 30.1 % (32.4-45.2); HEMOGLOBIN 9.7 GM/dL (10.7-15.3); LYMPH % 17.6 % (8-40); MCH 24.8 pg (25.7-33.7); MCHC 32.3 g/dl (32.0-36.0); MEAN CELL VOLUME 76.8 fl (80-96); MEAN PLT VOLUME 7.3 fl (7.5-11.1); NEUT % 70.9 % (42.8-82.8); PLATELET COUNT 509 10^3/uL (134-434); RBC 3.92 M/mm3 (3.60-5.2); RDW 23.4 % (11.6-15.6); WHITE BLOOD COUNT 7.9 K/mm3 (4.0-10.0)
[2023-07-04 09:26] LABS: POTASSIUM 3.9 mmol/L (3.5-5.1)
[2023-07-04 09:28] LABS: CALCIUM 8.2 mg/dL (8.5-10.1)
[2023-07-04 09:29] LABS: BLOOD UREA NITROGEN 5.3 mg/dL (7-18)
[2023-07-04 09:32] LABS: CREATININE 0.5 mg/dL (0.55-1.3)
[2023-07-04 09:34] LABS: BILIRUBIN,TOTAL 0.3 mg/dL (0.2-1)
[2023-07-04 09:38] LABS: ALBUMIN 2.5 g/dl (3.4-5.0)
[2023-07-04] MEDS: POLYETHYLENE GLYCOL (HEALTHYLAX) 3350 17 GM PACKET PO SCH (10:16)
[2023-07-04 14:05] VITALS: BMI 20.2
[2023-07-04] MEDS: AMINO ACIDS/PROTEIN HYDROLYS 30 ML LIQUID.PKT PO SCH (18:24)
[2023-07-05 09:43] LABS: BASO % 0.3 % (0-2.0); EOS % 3.4 % (0-4.5); HEMATOCRIT 30.1 % (32.4-45.2); HEMOGLOBIN 9.4 GM/dL (10.7-15.3); LYMPH % 12.6 % (8-40); MCH 24.7 pg (25.7-33.7); MCHC 31.3 g/dl (32.0-36.0); MEAN CELL VOLUME 78.9 fl (80-96); MEAN PLT VOLUME 7.4 fl (7.5-11.1); MONO % 5.6 % (3.8-10.2); NEUT % 78.1 % (42.8-82.8); PLATELET COUNT 470 10^3/uL (134-434); RBC 3.81 M/mm3 (3.60-5.2); RDW 24.3 % (11.6-15.6); WHITE BLOOD COUNT 7.9 K/mm3 (4.0-10.0)
[2023-07-05 10:07] LABS: POTASSIUM 3.9 mmol/L (3.5-5.1)
[2023-07-05 10:09] LABS: CALCIUM 8.6 mg/dL (8.5-10.1)
[2023-07-05 10:10] LABS: ALBUMIN 2.5 g/dl (3.4-5.0); BLOOD UREA NITROGEN 7.9 mg/dL (7-18); MAGNESIUM 1.9 mg/dL (1.8-2.4)
[2023-07-05 10:13] LABS: CREATININE 0.5 mg/dL (0.55-1.3)
[2023-07-05 10:14] LABS: TOT PROT 5.9 g/dl (6.4-8.2)
[2023-07-05 10:15] LABS: BILIRUBIN,TOTAL 0.2 mg/dL (0.2-1)
[2023-07-05 10:43] LABS: ANISOCYTOSIS 2+; MACROCYTOSIS 1+
[2023-07-05 15:19] VITALS: BP 94/52; PULSE 81; TEMP 98.6
== END 2023-07-05 19:08 | disposition home or self-care (01) | DRG 254 ==
LOC: JER 08:07 → OBSVTOIN 11:45 → JERBED 11:45 → J8W 06-29 04:42
PROVIDERS: ADMIT Internal Medicine; ATTEND Nurse Practitioner Acute Care
PROC: 30233N1 Transfusion of Nonautologous Red Blood Cells into Peripheral Vein, Percutaneous Approach (ICD-10-PCS; 2023-06-28)
PROC: 0DJD8ZZ Inspection of Lower Intestinal Tract, Via Natural or Artificial Opening Endoscopic (ICD-10-PCS; principal; 2023-06-30 13:00)
DX: D49.0 Neoplasm of unspecified behavior of digestive system (principal); D50.9 Iron deficiency anemia, unspecified; D62 Acute posthemorrhagic anemia; E44.0 Moderate protein-calorie malnutrition; Z68.20 Body mass index [BMI] 20.0-20.9, adult; K57.20 Diverticulitis of large intestine with perforation and abscess without bleeding
CPT/HCPCS: 0241U-QW; 36415; 36430; 71046-TC-FY; 71260-TC; 72197-TC; 74177-TC; 74183-TC; 80048; 80053; 81003; 82378; 82728; 83540; 83550; 83605; 83735; 83880; 84100; 84443; 84484; 84703; 85025; 85027; 85610; 86850; 86900; 86901; 86922; 88305-TC; 93005; 93010; 99291; J1756; P9038; P9058; Q9967